=== PATIENT | female | born 1990 | race Caucasian/White ===

== ENCOUNTER → 2017-02-09 | Outpatient (CLI) | payer SELFPAY ==
[~2017-02-09] MED LIST: BUSP10TA95 PO; FLUC100T6 PO; HYDR-3816 PO; TPR25T PO; morphine INJ 10 MG/ML 1ML (SYR OR VIAL) ONE
--- NOTE | 2017-02-09 17:06 | Diagnostic Imaging Report ---
PROCEDURE: US abdomen complete. TECHNIQUE: Multiple real-time grayscale images were obtained over the abdomen in various projections. INDICATION: Acute abdominal pain. FINDINGS: The visualized portions of the pancreas appear unremarkable. The liver is fairly homogeneous with no focal lesion seen. Hepatopedal flow in the portal vein is seen. The CBD is 3 mm, however. Multiple gallstones are seen with no wall thickening or pericholecystic fluid noted. The visualized portions of the IVC and aorta appear unremarkable. The left kidney is 9.2 cm and the right kidney is the 10.1 cm in length. No hydronephrosis or focal lesion is seen. The spleen is 8.4 cm in length, normal. No fluid collection is seen. Sonographic Patterson sign is, reportedly, negative. IMPRESSION: Cholelithiasis. Dictated by: Dictated on workstation # [id number]
== END ==
LOC: RAD 16:12
PROVIDERS: ATTEND Nurse Practitioner Family
DX: K80.20 Calculus of gallbladder without cholecystitis without obstruction (principal)
CPT/HCPCS: 76700

== ENCOUNTER → 2017-02-10 | Outpatient (CLI) | payer SELFPAY ==
[~2017-02-10] VITALS: Ht 160 cm; Wt 53.1 kg
[~2017-02-10] MED LIST changes: -morphine INJ 10 MG/ML 1ML (SYR OR VIAL) ONE
== END ==
LOC: PREOP 14:26
PROVIDERS: ATTEND Surgery
DX: Z01.818 Encounter for other preprocedural examination (principal); K80.20 Calculus of gallbladder without cholecystitis without obstruction

== ENCOUNTER 2017-02-11 07:52 | Day surgery (SDC) | payer BC ==
[~2017-02-11] VITALS: Ht 160 cm; Wt 53.1 kg
[~2017-02-11 07:52] MED LIST changes: -HYDR-3816 PO
[2017-02-11] MEDS ORDERED: ceFAZolin 1,000 MG (ANCEF) VIAL ONE (07:54)
[2017-02-11] MEDS ORDERED: NS (IVPB) 50 ML ONE (07:54)
--- OUTSIDE RECORDS SUMMARY | 2017-02-11 07:56 | XMS REPORT ---
Author Author LEON CHAPMAN [facility] Address [address] [place], [place] [id number] Care Team Providers Care Data Management Consultant Name Role Phone LEON CHAPMAN PCP Unavailable Allergies and Adverse Reactions Name Reaction Notes NO KNOWN DRUG ALLERGIES Plan of Treatment Not available. Medications Active Name Start Date Estimated Completion Date SIG Comments citalopram 20 mg oral tablet 05/07/2015 07/06/2015 take 1 tablet (20 mg) by oral route once daily for 30 days Name Start Date Expiration Date SIG Comments doxycycline hyclate 100 mg oral capsule 08/10/2013 02/06/2014 take 1 capsule by oral route 2 times a day for 30 days Sprintec (28) 0.25-35 mg-mcg oral tablet 08/10/2013 08/05/2014 take 1 tablet by oral route once daily for 30 days Discontinued Name Start Date Discontinued Date SIG Comments DOXYCYCL HYC 100MG CAP 100 each 02/06/2010 08/10/2013 1BID - TAKE ONE CAPSULE BY MOUTH TWICE DAILY doxycycline hyclate 100 mg oral capsule 12/22/2012 12/22/2012 take 1 capsule by oral route 2 times a day for 30 days deleted Problem List Description Status Onset Acne Active Metrorrhagia Active 08/13/2013 Menorrhagia Active 08/13/2013 Vital Signs Date Time BP-Sys(mm[Hg] BP-Cleo(mm[Hg]) HR(bpm) RR(rpm) Temp WT HT HC BMI BSA BMI Percentile O2 Sat(%) 05/07/2015 7:53:00 AM 102 mmHg 70 mmHg 98 bpm 16 rpm 97.4 F 162 lbs 64 in 27.81 kg/m2 1.82 m2 99 % 08/10/2013 9:27:00 AM 132 mmHg 58 mmHg 90 bpm 16 rpm 98.2 F 151 lbs 65 in 25.1275 kg/m 1.7723 m 99 % 08/10/2011 10:55:00 AM 102 mmHg 60 mmHg 64 bpm 130 lbs 65 in 21.63 kg/m2 1.64 m2 49.7 % Social History Name Description Comments Tobacco Never smoker denies alcohol use History of Procedures Not available. Results Summary Not available. History Of Immunizations Not available. History of Past Illness Name Date of Onset Comments Acne Metrorrhagia 08/13/2013 Menorrhagia 08/13/2013 Acne Aug 10 2011 10:56AM Metrorrhagia Aug 10 2013 9:28AM Menorrhagia Aug 10 2013 9:28AM Acne Aug 10 2013 9:28AM Moderate Acute Depressive Disorder May 07 2015 7:53AM Payers Insurance Name Company Name Plan Name Plan Number Policy Number Policy Group Number Start Date [employer] [id number] N/A BCBS [facility] [id number] N/A Benefit Management [facility] [id number] N/A Benefit Management [place] Benefit [employer], [facility]. [id number] N/A [facility] [id number] N/A History of Encounters Visit Date Visit Type Provider 05/07/2015 Office visit LEON WARD 08/10/2013 Office visit LEON WARD 08/10/2011 Office visit LEON WARD 02/14/2009 Office visit Leon Chapman PA-C 01/08/2009 Office visit LEON WARD
--- OUTSIDE RECORDS SUMMARY | 2017-02-11 07:56 | XMS REPORT ---
Author Author LEON HAYS [facility] Address [address] [place], [place] [id number] Care Team Providers Care Behavioral Health Consultant Name Role Phone LEON HAYS PCP Unavailable Allergies and Adverse Reactions Name Reaction Notes NO KNOWN DRUG ALLERGIES Plan of Treatment Not available. Medications Active Name Start Date Estimated Completion Date SIG Comments Brintellix 10 mg oral tablet 10/24/2015 01/22/2016 take 1 tablet (10 mg) by oral route once daily at the same time each day for 30 days Name Start Date Expiration [...] times a day for 30 days deleted citalopram 20 mg oral tablet 05/07/2015 08/26/2015 take 1 tablet (20 mg) by oral route once daily for 30 days Zoloft 50 mg oral tablet 06/09/2015 10/24/2015 take 1 tablet (50 mg) by oral route once daily Lexapro 10 mg oral tablet 08/26/2015 10/24/2015 take 1 tablet (10 mg) by oral route once daily for 30 days Problem List Description Status Onset Acne Active Metrorrhagia Active 08/13/2013 Menorrhagia Active 08/13/2013 Vital Signs Date Time BP-Sys(mm[Hg] BP-Cleo(mm[Hg]) HR(bpm) RR(rpm) Temp WT HT HC BMI BSA BMI Percentile O2 Sat(%) 10/23/2015 1:14:00 PM 120 mmHg 80 mmHg 81 bpm 16 rpm 97.1 F 157.375 lbs 64 in 27.01 kg/m2 1.80 m2 99 % 05/07/2015 7:53:00 AM 102 mmHg 70 mmHg 98 bpm 16 rpm 97.4 F 162 lbs 64 in 27.807 kg/m 1.8216 m 99 % 08/10/2013 9:27:00 AM 132 mmHg 58 mmHg 90 bpm 16 rpm 98.2 F 151 lbs 65 in 25.13 kg/m2 1.77 m2 99 % 08/10/2011 10:55:00 AM 102 mmHg 60 mmHg 64 bpm 130 lbs 65 in 21.6329 kg/m 1.6445 m 49.7 % Social History Name Description Comments Tobacco Never smoker denies alcohol use History of Procedures Date Ordered Description Order Status 10/23/2015 12:00 AM COMPLETE CBC W/AUTO DIFF WBC Returned 10/23/2015 12:00 AM COMPREHEN METABOLIC PANEL Returned 10/23/2015 12:00 AM LIPID PANEL Returned 10/23/2015 12:00 AM ASSAY OF TOTAL THYROXINE Returned 10/23/2015 12:00 AM ASSAY THYROID STIM HORMONE Returned 10/23/2015 12:00 AM ASSAY OF THYROID (T3 OR T4) Returned 10/23/2015 12:00 AM VITAMIN D 25 HYDROXY Returned Results Summary Data and Description Results 10/23/2015 3:45 PM TRIGLYCERIDES 106.0 mg/dLCHOLESTEROL 170.0 mg/dLHDL 38.0 mg/ dLLDL (CALC) 111.0 mg/dLVITAMIN D 24.30 ng/mLWBC 5.2 RBC 4.36 HGB 13.0 g/dLHCT 40.80 %MCV 94.0 fLMCH 29.80 pgMCHC 31.90 g/dLRDW CV 11.70 %MPV 10.50 fLPLT 300 % NEUT 52.40 %%LYMP 38.20 %%MONO 7.80 %%EOS 0.80 %%BASO 0.60 %#NEUT 2.74 #LYMP 2.00 #MONO 0.41 #EOS 0.04 #BASO 0.03 GLUCOSE 88.0 mg/dLSODIUM 142.0 mmol/ LPOTASSIUM 4.70 mmol/LCHLORIDE 107.0 mmol/LCO2 23.0 mmol/LBUN 12.0 mg/ dLCREATININE 0.70 mg/dLSGOT/AST 15.0 IU/LSGPT/ALT 18.0 IU/LALK PHOS 61.0 IU/ LTOTAL PROTEIN 6.60 g/dLALBUMIN 4.70 g/dLTOTAL BILI 0.90 mg/dLCALCIUM 9.40 mg/ dLeGFR >60 mL/min/1.73mTSH 1.810 uIU/mL History Of Immunizations Not available. History of Past Illness Name Date of Onset Comments Acne Metrorrhagia 08/13/2013 Menorrhagia 08/13/2013 Acne Aug 10 2011 10:56AM Metrorrhagia Aug 10 2013 9:28AM Menorrhagia Aug 10 2013 9:28AM Acne Aug 10 2013 9:28AM Moderate Acute Depressive Disorder May 07 2015 7:53AM Fatigue Oct 23 2015 1:19PM Familial hypercholesteremia Oct 23 2015 1:19PM Depression, unspecified depression type Oct 23 2015 1:14PM Payers Insurance Name Company Name Plan Name Plan Number Policy Number Policy Group Number Start Date [facility] [employer] [facility] Life [place] [employer] & Life [id number] N/A [facility]BS [facility] [id number] N/A Benefit Management [facility] [id number] N/A Benefit Management [place] Benefit [employer], [facility]. [id number] N/A BCBS [facility] [id number] N/A History of Encounters Visit Date Visit Type Provider 10/23/2015 Office visit LEON WARD 05/07/2015 Office visit LEON WARD 08/10/2013 Office visit LEON WARD 08/10/2011 Office visit LEON WARD 02/14/2009 Office visit Leon Hays PA-C 01/08/2009 Office visit LEON WARD
--- OUTSIDE RECORDS SUMMARY | 2017-02-11 07:56 | XMS REPORT ---
Author Author LEON HAYS [facility] Address [address] [place], [place] [id number] Care Team Providers Care Diesel Maintenance Electrician Name Role Phone LEON HAYS PCP Unavailable [...] Policy Number Policy Group Number Start Date [facility] [place] & Life [id number] N/A BCBS [facility] [id number] N/A Benefit Management [facility] [id number] N/A Benefit Management [place] Benefit [employer], [facility]. [id number] N/A BCBS [facility] [id number] N/A History of Encounters Visit Date Visit Type Provider 10/23/2015 Office visit LEON WARD 05/07/2015 Office visit LEON WARD 08/10/2013 Office visit LEON WARD 08/10/2011 Office visit LEON WARD 02/14/2009 Office visit Leon Hays PA-C 01/08/2009 Office visit LEON WARD
--- OUTSIDE RECORDS SUMMARY | 2017-02-11 07:57 | XMS REPORT ---
Author Author LEON CHAPMAN [facility] Address [address] [place], [place] [id number] Care Team Providers Care Anesthesiology Crna Name Role Phone LEON CHAPMAN PCP Unavailable Allergies and Adverse Reactions Name Reaction Notes NO KNOWN DRUG ALLERGIES Plan of Treatment Planned Activity Comments Planned Date Planned Time Plan/Goal COMPLETE CBC W/AUTO DIFF WBC 10/23/2015 12:00 AM COMPREHEN METABOLIC PANEL 10/23/2015 12:00 AM LIPID PANEL 10/23/2015 12:00 AM ASSAY OF TOTAL THYROXINE 10/23/2015 12:00 AM ASSAY THYROID STIM HORMONE 10/23/2015 12:00 AM ASSAY OF THYROID (T3 OR T4) 10/23/2015 12:00 AM VITAMIN D 25 HYDROXY 10/23/2015 12:00 AM Medications Active Name Start Date Estimated Completion Date SIG Comments Zoloft 50 mg oral tablet 06/09/2015 take 1 tablet (50 mg) by oral route once daily Lexapro 10 mg oral tablet 08/26/2015 10/25/2015 take 1 tablet (10 mg) by oral [...] 1:19PM Familial hypercholesteremia Oct 23 2015 1:19PM Payers Insurance Name Company Name Plan Name Plan Number Policy Number Policy Group Number Start Date [email or web address] & Life [place] [employer] & Life [id number] N/A [facility] [id number] N/A Benefit Management [facility] [id number] N/A Benefit Management [place] [employer] [id number] N/A [facility] [id number] N/A History of Encounters Visit Date Visit Type Provider 10/23/2015 Office visit LEON WARD 05/07/2015 Office visit LEON WARD 08/10/2013 Office visit LEON WARD 08/10/2011 Office visit LEON WARD 02/14/2009 Office visit Leon Chapman PA-C 01/08/2009 Office visit LEON WARD
--- OUTSIDE RECORDS SUMMARY | 2017-02-11 07:57 | XMS REPORT | Continuity of Care Document ---
Author Author [facility] Address Unknown Phone Unavailable Allergies Medications Problems Procedures Results Encounters ACCT No. Visit Date/Time Discharge Status Pt. Type Provider Facility Loc./Unit Complaint [id number] 11/07/2015 12:10:48 11/07/2015 23: 59:59 [facility] Outpatient NIKO CHAPMAN [id number] 05/07/2015 08:42:35 05/07/2015 23: 59:59 [facility] Outpatient NIKO CHAPMAN [id number] 08/10/2013 09:54:29 08/10/2013 23: 59:59 [facility] Outpatient NIKO CHAPMAN
--- OUTSIDE RECORDS SUMMARY | 2017-02-11 07:57 | XMS REPORT ---
Author Author LEON CHAPMAN [facility] Address [address] [place], [place] [id number] Care Team Providers Care Rack Pusher Name Role Phone LEON CHAPMAN PCP Unavailable [...] Policy Group Number Start Date [facility] & Life [place] triptap & Life [id number] N/A [facility] [id number] N/A Benefit Management [facility] [id number] N/A Benefit Management [place] Benefit Management, [facility]. [id number] N/A [facility] [id number] N/A History of Encounters Visit Date Visit Type Provider 10/23/2015 Office visit LEON WARD 05/07/2015 Office visit LEON WARD 08/10/2013 Office visit LEON WARD 08/10/2011 Office visit LEON WARD 02/14/2009 Office visit Leon Chapman PA-C 01/08/2009 Office visit LEON WARD
[2017-02-11 07:58] VITALS: BP 144/48
[2017-02-11] MEDS ORDERED: BUP/EPI 0.5% 1:200,000 (MARCAINE) 10ML VIAL IJ ONE (08:09)
--- NOTE | 2017-02-11 08:23 | History & Physical-Surgical ---
HPO-Surgical History of Present Illness Chief Complaint: A 27 year old female who presented to PCP yesterday with a 4-5 month history of RUQ pain. She reports that she has had associated nausea with the pain. She reports it to be sharp in nature at times and that it will radiate towards her back and right shoulder. She denied any vomiting, reflux, fever/chills, diarrhea or constipation. She reports that she has noted that certain foods such as milk as well as greasy/fried foods make her pain worse. She reports that she has also lost 30 lbs over the last 4-5 months due having a decreased appetite. A gallbladder US was performed yesterday which showed gallstones. Diagnosis/Surgical Indication: GALLSTONES Procedure: LAP NADIYA Date of Surgery: Feb 11, 2017 Weight (Pounds): 117 Weight (Ounces): 0.0 Height (Feet): 5 Height (Inches): 3.00 Allergies and Home Medications Allergies Coded Allergies: No Known Drug Allergies (Unverified , 02/10/17) Home Medications Buspirone HCl 10 Mg Tablet, 20 MG PO DAILY, (Reported) Fluconazole 100 Mg Tablet, 100 MG PO DAILY, (Reported) Topiramate 25 Mg Tablet, 75 MG PO DAILY, (Reported) Past Umflqlw-Ekukor-Xpdigx Hx Patient Social History Employed/Student: employed Alcohol Use: Denies Use Recreational Drug Use: No Smoking Status: Never a Smoker Recent Foreign Travel: No Contact w/other who traveled: No Recent Hopitalizations: No Recent Infectious Disease Expo: No Immunizations Up To Date Date of Influenza Vaccine: Jan 19, 2016 Seasonal Allergies Seasonal Allergies: Yes Surgeries No Neurological Headaches /Migraines Reproductive System Hx Reproductive Disorders: No Sexually Transmitted Disease: No HIV/AIDS: No Female Reproductive Disorders: Menstrual Problems, Ovarian Cyst Gastrointestinal Gall Bladder Disease HEENT Loss of Vision: Denies Hearing Impairment: Denies Psychosocial Behavioral Health Disorders: Anxiety, Depression Blood Transfusions Adverse Reaction to a Blood Tr: No (N/A) Family Medical History Other Significan Family Hx: Maternal and Paternal Grandmother - Breast Cancer, Diabetes Maternal Grandfather - Throat CA and Diabetes Paternal Grandfather - Prostate CA and DM Exam Vital Signs Capillary Refill : Labs Laboratory Tests Test 02/11/17 08:10 Range/Units General Appearance: Alert, Oriented X3, Cooperative, No Acute Distress HEENT: Atraumatic, PERRLA Respiratory: Clear to Auscultation Cardiovascular: Regular Rate, No Murmurs Abdominal: Normal Bowel Sounds, Soft, Other (Tenderness with palpation to RUQ.) Extremities: Normal Pulses, No Tenderness/Swelling Skin: Other (Warm, dry, pink.) Neuro: Normal Gait, Normal Speech, Strength at 5/5 X4 Ext Psych/Mental Status: Mental Status NL, Mood NL Assessment/Plan Assessment and Plan A 27 year old female with chronic calculous cholecystitis. Will proceed with Laparoscopic cholecystectomy. Risks, benefits, home care instructions explained to patient. Agrees to proceed as planned. Problems: Admission Diagnosis Chronic calculous cholecystitis Copy Copies To 1: MELVIN MCCULLOUGH MD Copies To 2: YVETTE ALCARAZ DUSTIN L APRN Feb 11, 2017 8:23 am
[2017-02-11] MEDS ORDERED: ceFAZolin 1 GM/NS 50 ML IVPB IV ONE ×2 (08:30)
[2017-02-11] MEDS ORDERED: CATHETER FLUSH 10 ML SYR IV PRN (08:30)
[2017-02-11] MEDS: LACTATED RINGERS 1,000 ML IV PRN ×2 (08:38→09:28)
[2017-02-11] MEDS ORDERED: morphine INJ 10 MG/ML 1ML (SYR OR VIAL) IVP PRN ×2 (08:45→11:00)
[2017-02-11] MEDS ORDERED: ONDANSETRON 4 MG/2 ML (SDV) Z0FRAN IVP PRN ×2 (08:45→11:00)
[2017-02-11] MEDS ORDERED: MIDAZOLAM 2 MG/2 ML (VERSED) VIAL IV ONE (08:45)
[2017-02-11] MEDS ORDERED: HYDROcodone/APAP 5 MG/325 MG (LORTAB) TAB PO ONE (08:45)
[2017-02-11] MEDS ORDERED: ACETAMINOPHEN 325 MG TABLET/CAPLET (TYLENOL) PO PRN (08:45)
[2017-02-11] MEDS ORDERED: DEXAMETHASONE 10 MG/ML (DECADRON) 1 ML VIAL ONE (08:53)
[2017-02-11] MEDS ORDERED: proPOfol 200 MG/20 ML (DIPRIVAN) VIAL IV ONE (08:53)
[2017-02-11] MEDS ORDERED: SEVOFLURANE (ULTANE) 15 ML INHAL SOLN ONE ×5 (08:53→10:23)
[2017-02-11] MEDS ORDERED: LIDOCAINE PF 2% 5 ML (XYLOCAINE) VIAL ONE (08:53)
[2017-02-11] MEDS ORDERED: ONDANSETRON 4 MG/2 ML (SDV) Z0FRAN ONE (08:53)
[2017-02-11] MEDS ORDERED: ROCURONIUM 50 MG/5 ML (ZEMURON) VIAL IV ONE (08:53)
[2017-02-11] MEDS ORDERED: MIDAZOLAM 2 MG/2 ML (VERSED) VIAL ONE (08:53)
[2017-02-11] MEDS ORDERED: fentaNYL INJECTION 100 MCG/2 ML AMP ONE ×2 (08:54→10:23)
[2017-02-11] MEDS ORDERED: GLYCOPYRROLATE 0.2 MG/ML (ROBINUL) 2 ML VIAL ONE (10:08)
[2017-02-11] MEDS ORDERED: NEOSTIGMINE (BLOXIVERZ ) 1 MG/1ML 10 ML VIAL ONE (10:08)
[2017-02-11 10:11] LABS: MEAN PLATELET VOLUME 10.3 FL (7.4-10.4); RED BLOOD COUNT 4.63 10^6/uL (4.35-5.85); RED CELL DISTRIBUTION WIDTH 11.8 % (10.0-14.5); WHITE BLOOD COUNT 5.2 10^3/uL (4.3-11.0)
--- NOTE | 2017-02-11 10:38 | Progress Note-Post Operative ---
Post-Operative Progess Note Surgeon (s)/Channel Opener Outsoles (s) Surgeon MELVIN MCCULLOUGH MD Channel Opener Outsoles: micah castro EXECUTIVE OFFICER Pre-Operative Diagnosis GALLSTONES Post-Operative Diagnosis symptomatic chronic calculous cholecystitis. Procedure & Operative Findings Date of Procedure 02/11/17 Procedure Performed/Findings laparoscopic cholecystectomy. Anesthesia Type GET Estimated Blood Loss Estimated blood loss (mL): minimal Specimens/Packing Specimens Removed gallbladder MELVIN MCCULLOUGH MD Feb 11, 2017 10:38 am
[2017-02-11] MEDS ORDERED: HYDR-3816 PO (10:46)
--- NOTE | 2017-02-11 10:48 | Discharge Inst-Surgical ---
D/C Lap Instructions-JAMEL New, Converted, or Re-Newed RX: RX on Chart Follow Up Appt in 2 weeks Activity as tolerated No driving for 24 hours No driving while on pain medications Incentive Spirometry use every 2 hours while awake Regular Diet Symptoms to Report: Fever over 101 degree F, Nausea/Vomiting Infection Signs and Symptoms to report: Increased redness, Foul odor of wound, Increased drainage Bathing instructions: May shower Operative Area Clean/Dry; Keep incision clean/dry If any problems/questions: Contact your physician or go to Emergency Room MELVIN MCCULLOUGH MD Feb 11, 2017 10:48 am
[2017-02-11] MEDS ORDERED: HYDROmorphone (DILAUDID) 2 MG/ML VIAL IVP PRN (11:00)
[2017-02-11] MEDS ORDERED: MEPERIDINE (DEMEROL) INJ 50 MG/ML IVP PRN (11:00)
[2017-02-11 11:40] VITALS: BP 117/78
[2017-02-11 12:19] VITALS: BP 120/81
--- NOTE | 2017-02-11 19:34 | OPERATIVE REPORT ---
DATE OF SERVICE: 02/11/2017 ATTENDING PRIMARY CARE PHYSICIAN: Dr. Stephens. PREOPERATIVE DIAGNOSIS: Symptomatic chronic calculous cholecystitis. POSTOPERATIVE DIAGNOSIS: Symptomatic chronic calculous cholecystitis. PROCEDURE: Laparoscopic cholecystectomy. SURGEON: Dr. Mccullough. CAMPGROUND HAND: Jb Rios APRN. ANESTHESIA: General endotracheal. ESTIMATED BLOOD LOSS: Minimal. FINDINGS: Chronic gallbladder wall inflammation as well as multiple small gallstones. DISPOSITION: The patient tolerated the procedure well. The patient is a 27-year-old female who has had approximately a 10-month history of recurrent episodes of right upper abdominal quadrant pain with radiation towards the back associated with nausea as well as occasional episodes of vomiting. She states that over the past several months this has increased in severity as well as frequency and she has developed a food fear and she has lost a significant amount of weight in the past several months as well. An ultrasound was performed which showed multiple gallstones. DESCRIPTION OF PROCEDURE: The patient was brought to the operating room, laid supine on the table. After adequate IV pain and sedating medications and general endotracheal intubation, the abdomen was prepped and draped in standard surgical fashion. 0.5% Marcaine with epinephrine was then used to anesthetize the overlying skin in the left upper abdominal quadrant. A small transverse skin incision made using a 15 blade. An 0 silk suture was applied to the medial aspect of the incision for retraction and a Veress needle inserted with a low opening pressure of 0 mmHg. The Veress needle removed and a 5 mm Xcel trocar placed followed by a 5 mm 45 degree angle laparoscope visualizing the peritoneal cavity. A 4-quadrant abdominal exploration was performed. There was mild chronic dilatation and inflammation of the gallbladder. What was visualized of the liver, omentum, stomach and small bowel appeared normal. Under direct visualization, we then proceeded to place a supraumbilical 10 mm port after the skin and peritoneum were anesthetized using 0.5% Marcaine with epinephrine and a transverse skin incision made using a 15 blade. In a similar manner, a right upper abdominal quadrant 5 mm port was placed. The patient was then placed in reverse Trendelenburg position as well as planed right side up, left side down. The fundus of the gallbladder was then retracted anteriorly and superiorly. The hepatoduodenal ligament was then opened using blunt dissection as well as electrocautery on the hook instrument. The entire critical view of safety was identified including the triangle of Calot, the cystic duct and artery going into the gallbladder as well as the liver behind the proximal gallbladder. A timeout was then taken and the cystic duct and artery were clipped proximally and distally and cut with EndoShears. The gallbladder was then dissected off the liver bed using electrocautery and the hook instrument with visualization and good hemostasis as well as no leaking ducts of Luschka. The gallbladder was removed through the 10 mm port site using an EndoCatch bag. The 10 mm port site fascia and peritoneum were then closed under direct visualization using Saúl-Khadar device and 0 Vicryl suture. The abdomen was desufflated and remaining ports removed. All skin incisions were closed using 4-0 Monocryl running subcuticular sutures. Wounds were then cleaned and covered with Dermabond. The patient tolerated the procedure well. We will start IV and oral pain medications as well as a clear liquid diet. Once she is tolerating clears and has good pain control with oral pain medications and is ambulating well, we will discharge her home. Job ID: [id number] DocumentID: [id number] Dictated Date: 02/11/2017 10:54:28 Technical Manager Date: 02/11/2017 19:33:45 Dictated By: MELVIN MCCULLOUGH MD
== END 2017-02-11 12:40 | disposition home or self-care (01) ==
LOC: SDC 07:52
PROVIDERS: ATTEND Surgery
DX: K80.10 Calculus of gallbladder with chronic cholecystitis without obstruction (principal); R51 Headache; F41.9 Anxiety disorder, unspecified; F32.9 Major depressive disorder, single episode, unspecified; Z79.899 Other long term (current) drug therapy
CPT/HCPCS: 36415; 84703; 85027; 87081; 94664